=== PATIENT | female | born 1930 | race Caucasian/White ===

== ENCOUNTER 2017-04-22 12:55 | Observation (INO) | payer MEDICARE, OTHER ==
[2017-04-22] MEDS ORDERED: ALBUTEROL SULFATE 0.083% NEB 2.5 MG/3 ML AMPUL NEB ONE ×2 (13:04)
--- NOTE | 2017-04-22 13:27 | ER Document Report ---
ED General - General Stated Complaint: DIFFICULTY BREATHING Mode of Arrival: Medic Information source: Patient Notes: 86-year-old female presents with concerns of hypoxemia aspiration after colonoscopy was performed. Chest x-ray was performed prior to arrival which notes a left lower lobe infiltrate concerning for aspiration. Patient setting 91-94% TRAVEL OUTSIDE OF THE [place] IN LAST 30 DAYS: No - Related Data Allergies/Adverse Reactions: No Known Allergies Allergy (Verified 04/22/17 13:35) Past Medical History - Social History Smoking Status: Never Smoker Cigarette use (# per day): No Chew tobacco use (# tins/day): No Smoking Education Provided: No Family History: Reviewed & Not Pertinent - Past Medical History Cardiac Medical History: Reports: Hx Hypertension Denies: Hx Coronary Artery Disease - HYPERCHOLESTEROLEMIA, Hx Heart Attack Pulmonary Medical History: Denies: Hx Asthma, Hx Bronchitis, Hx COPD, Hx Pneumonia Neurological Medical History: Denies: Hx Cerebrovascular Accident, Hx Seizures GI Medical History: Reports: Hx Hiatal Hernia. Denies: Hx Hepatitis, Hx Ulcer Infectious Medical History: Denies: Hx Hepatitis Past Surgical History: Reports: Hx Hysterectomy. Denies: Hx Mastectomy, Hx Open Heart Surgery, Hx Pacemaker - Immunizations Hx Diphtheria, Pertussis, Tetanus Vaccination: No Review of Systems - Review of Systems Notes: REVIEW OF SYSTEMS: CONSTITUTIONAL : Denies fever, chills, or sweats. Denies recent illness. EENT: Denies eye, ear, throat, or mouth pain or symptoms. Denies nasal or sinus congestion or discharge. Denies throat, tongue, or mouth swelling or difficulty swallowing. CARDIOVASCULAR: Denies chest pain. Denies palpitations or racing or irregular heart beat. Denies ankle edema. RESPIRATORY: coughing GASTROINTESTINAL: Denies abdominal pain or distention. Denies nausea, vomiting , or diarrhea. Denies blood in vomitus, stools, or per rectum. Denies black, tarry stools. Denies constipation. GENITOURINARY: Denies difficulty urinating, painful urination, burning, frequency, blood in urine, or discharge. FEMALE GENITOURINARY: Denies vaginal bleeding, heavy or abnormal periods, irregular periods. Denies vaginal discharge or odor. MUSCULOSKELETAL: Denies back or neck pain or stiffness. Denies joint pain or swelling. SKIN: Denies rash, lesions or sores. HEMATOLOGIC : Denies easy bruising or bleeding. LYMPHATIC: Denies swollen, enlarged glands. NEUROLOGICAL: Denies confusion or altered mental status. Denies passing out or loss of consciousness. Denies dizziness or lightheadedness. Denies headache. Denies weakness or paralysis or loss of use of either side. Denies problems with gait or speech. Denies sensory loss, numbness, or tingling. Denies seizures. PSYCHIATRIC: Denies anxiety or stress. Denies depression, suicidal ideation, or homicidal ideation. ALL OTHER SYSTEMS REVIEWED AND NEGATIVE. PHYSICAL EXAMINATION: GENERAL: Well-appearing, well-nourished and in no acute distress. HEAD: Atraumatic, normocephalic. EYES: Pupils equal round and reactive to light, extraocular movements intact, conjunctiva are normal. ENT: Nares patent, oropharynx clear without exudates. Moist mucous membranes. NECK: Normal range of motion, supple without lymphadenopathy LUNGS: course rhonchi at the right base , tachypneic HEART: tachycardic ABDOMEN: Soft, nontender, nondistended abdomen. No guarding, no rebound. No masses appreciated. Female : deferred Musculoskeletal: Normal range of motion, no pitting or edema. No cyanosis. NEUROLOGICAL: Cranial nerves grossly intact. Normal speech, normal gait. Normal sensory, motor exams PSYCH: Normal mood, normal affect. SKIN: Warm, Dry, normal turgor, no rashes or lesions noted. Dictation was performed using [employer] voice recognition software Physical Exam - Vital signs Vitals: Temp Resp 97.9 F 24 H 04/22/17 12:55 04/22/17 12:55 Course - Re-evaluation Re-evalutation: 04/22/17 16:57 Patient was immediately evaluated on arrival, she was very coarse, chest x-ray at the [facility] was concerning for an infiltrate, was given multiple breathing treatments and states he feels much better. Patient continues to cough but wishes to leave. I have requested that I admit her but she states that she feels much better and that she rather be at home. Given her age given the amount that she is coughing I am not very confident that she will do well, I will start her on prophylactic antibiotics After performing a Medical Screening Examination, I estimate there is LOW risk for ACUTE CORONARY SYNDROME, RESPIRATORY FAILURE, SEPSIS OR MENINGITIS, thus I consider the discharge disposition reasonable. I have reevaluated this patient multiple times and no significant life threatening changes are noted. The patient and I have discussed the diagnosis and risks, and we agree with discharging home with close follow-up. We also discussed returning to the Emergency Department immediately if new or worsening symptoms occur. We have discussed the symptoms which are most concerning (e.g., changing or worsening pain, trouble swallowing or breathing, neck stiffness, fever) that necessitate immediate return. - Vital Signs Vital signs: Temp Pulse Resp BP Pulse Ox 97.9 F 28 H 143/46 H 93 04/22/17 12:55 04/22/17 16:01 04/22/17 16:01 04/22/17 16:01 - Laboratory Result Diagrams: 04/22/17 15:20 04/22/17 15:20 Laboratory results interpreted by me: 04/22/17 04/22/17 15:20 15:20 WBC 14.8 H Seg Neuts % (Manual) 92 H Lymphocytes % (Manual) 2 L Abs Neuts (Manual) 14.1 H Abs Lymphs (Manual) 0.3 L Sodium 130.3 L Potassium 3.4 L Chloride 92 L Glucose 164 H - Diagnostic Test Radiology reviewed: Image reviewed, Reports reviewed - no acute abnormality Discharge - Discharge Clinical Impression: Productive cough Aspiration pneumonia Qualifiers: Aspiration pneumonia type: unspecified Laterality: left Lung location: lower lobe of lung Qualified Code(s): J69.0 - Pneumonitis due to inhalation of food and vomit Condition: Fair Disposition: HOME, SELF-CARE Additional Instructions: Please return immediately if there are any other concerns, at this time even though you look better I am very concerned about you and I wish for you to stay in the hospital Prescriptions: Levofloxacin [Levaquin 750 mg Tablet] 750 mg PO DAILY #5 tablet Referrals: ARMANDO BUCIO MD [Primary Care Provider] - Follow up tomorrow
[2017-04-22] MEDS ORDERED: NAPROXEN 250 MG TABLET PO ONE (13:49)
--- NOTE | 2017-04-22 14:51 | RADIOLOGY REPORT (SQ) ---
EXAM DESCRIPTION: CHEST PA/LAT COMPLETED DATE/TIME: 04/22/2017 2:35 pm REASON FOR STUDY: left lower lobe aspiration COMPARISON: None. EXAM PARAMETERS: NUMBER OF VIEWS: two views TECHNIQUE: Digital Frontal and Lateral radiographic views of the chest acquired. RADIATION DOSE: NA LIMITATIONS: none FINDINGS: LUNGS AND PLEURA: No opacities, masses or pneumothorax. No pleural effusion. MEDIASTINUM AND HILAR STRUCTURES: No masses or contour abnormalities. HEART AND VASCULAR STRUCTURES: Heart normal size. No evidence for failure. BONES: No acute findings. HARDWARE: None in the chest. OTHER: No other significant finding. IMPRESSION: NO SIGNIFICANT RADIOGRAPHIC FINDING IN THE CHEST. TECHNICAL DOCUMENTATION: JOB ID: [id number] [employer]- All Rights Reserved
[2017-04-22 15:40] LABS: HEMATOCRIT 41.6 % (36.0-47.0); HEMOGLOBIN 13.8 g/dL (12.0-15.5); HGB HCT DIFFERENCE -0.2; MEAN CORPUSCULAR HEMOGLOBIN 31.4 pg (27.0-33.4); MEAN CORPUSCULAR HGB CONC 33.2 g/dL (32.0-36.0); MEAN CORPUSCULAR VOLUME 95 fl (80-97); RED CELL DISTRIBUTION WIDTH 13.6 % (11.5-14.0); WHITE BLOOD COUNT 14.8 10^3/uL (4.0-10.5)
[2017-04-22 16:00] LABS: BAND NEUTROPHILS % (MANUAL) 3 % (3-5); BASOPHILS % (MANUAL) 0 % (0-2); EOSINOPHILS % (MANUAL) 0 % (0-6); LYMPHOCYTES % (MANUAL) 2 % (13-45); TOTAL CELLS COUNTED 100
[2017-04-22 16:03] LABS: OVALOCYTES SLIGHT; POIKILOCYTOSIS SLIGHT
[2017-04-22 16:06] LABS: ALANINE AMINOTRANSFERASE 27 U/L (9-52); ALBUMIN 4.4 g/dL (3.5-5.0); ALKALINE PHOSPHATASE 98 U/L (38-126); ANION GAP 14 (5-19); ASPARTATE AMINO TRANSFERASE 30 U/L (14-36); BILIRUBIN,DIRECT 0.3 mg/dL (0.0-0.4); BILIRUBIN,TOTAL 0.6 mg/dL (0.2-1.3); BLOOD UREA NITROGEN 10 mg/dL (7-20); CARBON DIOXIDE 24 mmol/L (22-30); CHLORIDE 92 mmol/L (98-107); CREATININE RESULT 0.87 mg/dL (0.52-1.25); GLUCOSE 164 mg/dL (75-110); POTASSIUM 3.4 mmol/L (3.6-5.0); SODIUM 130.3 mmol/L (137-145); TOTAL PROTEIN 7.3 g/dL (6.3-8.2)
[2017-04-22 16:24] LABS: VENOUS BLOOD BASE EXCESS 1.1 mmol/L; VENOUS BLOOD HCO3 28.1 mmol/L (20-32); VENOUS BLOOD PCO2 54.1 mmHg (35-63); VENOUS BLOOD PH 7.33 (7.30-7.42)
[2017-04-22] MEDS ORDERED: LEVOFLOXACIN 500 MG/D5W RTU 100 ML IV ONE (17:22)
[2017-04-22] MEDS ORDERED: ACETAMINOPHEN 325 MG TABLET PO PRN (18:17)
[2017-04-22] MEDS ORDERED: NORMAL SALINE 1000 ML 1,000 ML IV PRN (18:17)
[2017-04-22] MEDS ORDERED: ONDANSETRON HCL INJ/PF 4 MG/2 ML SDV IV PRN (18:17)
--- NOTE | 2017-04-22 18:39 | PDOC H&P ---
History of Present Illness Admission Date/PCP: 04/22/17 17:47 ARMANDO BUCIO MD Patient complains of: Coughing and wheezing History of Present Illness: REENA HERNANDEZ is a 86 year old female, with history of hypertension, hiatal hernia, hyperlipidemia having routine colonoscopy earlier today reportedly vomited during the procedure and aspirated. The patient does not remember what happened as she was under conscious sedation. A chest x-ray was performed at the facility showing a left lower lobe infiltrate with associated hypoxia and therefore the patient was sent to the hospital. In the emergency room the patient complains of wheezing and coughing yellowish phlegm upon waking up. Patient does not remember what happened. She denies any having any fever or chills or sore throat. No history of congestive heart failure or asthma. Patient does not complain of any symptoms prior to the procedure. Past Medical History Past Medical History: Medication reconciliation pending verification from the patient's pharmacist. Cardiac Medical History: Reports: Hypertension Denies: Coronary Artery Disease - HYPERCHOLESTEROLEMIA, Myocardial Infarction Pulmonary Medical History: Denies: Asthma, Bronchitis, Chronic Obstructive Pulmonary Disease (COPD), Pneumonia Neurological Medical History: Denies: Seizures GI Medical History: Reports: Gastroesophageal Reflux Disease, Hiatal Hernia Denies: Hepatitis Hematology: Denies: Anemia, Sickle Cell Disease Past Surgical History Past Surgical History: Reports: Hysterectomy, Other - Colonoscopy Denies: Amputation, Mastectomy, Pacemaker Social History Information Source: Patient Smoking Status: Former Smoker Frequency of Alcohol Use: None Hx Recreational Drug Use: No Drugs: None - Advance Directive Resuscitation Status: Full Code Family History Family History: None, Reviewed & Not Pertinent Parental Family History Reviewed: Yes Children Family History Reviewed: Yes Sibling(s) Family History Reviewed.: Yes Medication/Allergy Allergies/Adverse Reactions: No Known Allergies Allergy (Verified 04/22/17 13:35) Review of Systems Constitutional: ABSENT: chills, fever(s), headache(s), weight gain, weight loss Eyes: ABSENT: visual disturbances Ears: ABSENT: hearing changes Nose, Mouth, and Throat: ABSENT: mouth pain, sore throat Cardiovascular: ABSENT: chest pain, dyspnea on exertion, edema, orthropnea, palpitations Respiratory: PRESENT: cough - With wheezing, dyspnea, sputum - Yellowish. ABSENT: hemoptysis Gastrointestinal: PRESENT: nausea, vomiting. ABSENT: abdominal pain, constipation, diarrhea, hematemesis, hematochezia Genitourinary: ABSENT: dysuria, hematuria Musculoskeletal: ABSENT: joint swelling Integumentary: ABSENT: rash, wounds Neurological: ABSENT: abnormal gait, abnormal speech, confusion, dizziness, focal weakness, syncope Psychiatric: ABSENT: anxiety, depression, homidical ideation, suicidal ideation Endocrine: ABSENT: cold intolerance, heat intolerance, polydipsia, polyuria Hematologic/Lymphatic: ABSENT: easy bleeding, easy bruising Physical Exam Vital Signs: Temp Pulse Resp BP Pulse Ox 99.7 F 42 H 140/51 H 93 04/22/17 18:15 04/22/17 18:01 04/22/17 18:01 04/22/17 18:01 Intake & Output 04/21/17 04/22/17 04/23/17 06:59 06:59 06:59 Intake Total 100 Balance 100 General appearance: PRESENT: no acute distress, cooperative Head exam: PRESENT: atraumatic, normocephalic Eye exam: PRESENT: conjunctiva pink, EOMI, PERRLA. ABSENT: scleral icterus Ear exam: PRESENT: normal external ear exam Mouth exam: PRESENT: moist, neck supple, tongue midline Throat exam: ABSENT: post pharyngeal erythema, tonsillar erythema Neck exam: ABSENT: carotid bruit, JVD, lymphadenopathy, thyromegaly Respiratory exam: PRESENT: rhonchi - scattered bilateral, wheezes - Expiratory bilateral. ABSENT: rales Cardiovascular exam: PRESENT: RRR, +S1, +S2. ABSENT: diastolic murmur, rubs, systolic murmur Pulses: PRESENT: normal dorsalis pedis pul Vascular exam: PRESENT: normal capillary refill GI/Abdominal exam: PRESENT: normal bowel sounds, soft. ABSENT: distended, guarding, mass, organolmegaly, rebound, tenderness Rectal exam: PRESENT: deferred Extremities exam: PRESENT: full ROM. ABSENT: calf tenderness, clubbing, pedal edema Neurological exam: PRESENT: alert, awake, oriented to person, oriented to place , oriented to time, oriented to situation, CN II-XII grossly intact. ABSENT: motor sensory deficit Psychiatric exam: PRESENT: appropriate affect, normal mood. ABSENT: homicidal ideation, suicidal ideation Skin exam: PRESENT: dry, intact, warm. ABSENT: cyanosis, rash Results Impressions: Chest X-Ray 04/22/17 13:03 IMPRESSION: NO SIGNIFICANT RADIOGRAPHIC FINDING IN THE CHEST. Assessment & Plan - Diagnosis (1) Aspiration pneumonitis Is this a current diagnosis for this admission?: Yes (2) Hyperactive airway disease Qualifiers: Asthma severity: unspecified severity Asthma complication type: uncomplicated Qualified Code(s): J45.909 - Unspecified asthma, uncomplicated Is this a current diagnosis for this admission?: Yes (3) Hyperlipidemia Qualifiers: Hyperlipidemia type: unspecified Qualified Code(s): E78.5 - Hyperlipidemia, unspecified Is this a current diagnosis for this admission?: Yes (4) Essential hypertension Is this a current diagnosis for this admission?: Yes (5) Gastroesophageal reflux disease Qualifiers: Esophagitis presence: without esophagitis Qualified Code(s): K21.9 - Gastro-esophageal reflux disease without esophagitis Is this a current diagnosis for this admission?: Yes - Time Time Spent: 30 to 50 Minutes - Plan Summary Plan Summary: Patient will be admitted to observation. I will give supplemental oxygen, begin anti-inflammatory which steroids and avoid nonsteroidals. We will give [id number] Xopenex for bronchodilation. Antibiotic to cover for aspiration will also be started. DVT prophylaxis with Lovenox will be placed. Further testing depends on the initial evaluations outlined above.
[2017-04-22] MEDS ORDERED: PREDNISONE 20 MG TABLET PO ONE (19:00)
[2017-04-22] MEDS ORDERED: POTASSIUM CHLORIDE 20 MEQ/15 ML UDCUP PO ONE (19:30)
[2017-04-22] MEDS ORDERED: METRONIDAZOLE 500 MG/NS RTU 100 ML IV ONE (19:30)
[2017-04-22] MEDS: LEVALBUTEROL HCL NEB 1.25 MG/3 ML AMPUL NEB SCH ×2 (20:15→23:48)
[2017-04-22] MEDS: BENZONATATE 100 MG CAPSULE PO SCH (21:09)
[2017-04-23] MEDS: METRONIDAZOLE 500 MG/NS RTU 100 ML IV SCH ×4 (00:18→17:40)
[2017-04-23] MEDS: LEVALBUTEROL HCL NEB 1.25 MG/3 ML AMPUL NEB SCH ×3 (04:25→11:20)
[2017-04-23] MEDS: LANSOPRAZOLE 30 MG TAB.RAP.DR PO SCH ×2 (05:11→17:39)
[2017-04-23] MEDS: BENZONATATE 100 MG CAPSULE PO SCH ×3 (05:11→22:18)
[2017-04-23 06:02] LABS: ANION GAP 10 (5-19); BLOOD UREA NITROGEN 16 mg/dL (7-20); CALCIUM 9.1 mg/dL (8.4-10.2); CARBON DIOXIDE 23 mmol/L (22-30); CHLORIDE 96 mmol/L (98-107); CREATININE RESULT 0.96 mg/dL (0.52-1.25); GLUCOSE 157 mg/dL (75-110); MAGNESIUM 1.4 mg/dL (1.6-2.3); PHOSPHORUS 2.9 mg/dL (2.5-4.5); SODIUM 128.7 mmol/L (137-145)
[2017-04-23 06:32] LABS: POTASSIUM 5.1 mmol/L (3.6-5.0)
[2017-04-23] MEDS: ENOXAPARIN SODIUM INJ 40 MG/0.4 ML DISP.SYRIN SUBCUT SCH (09:23)
[2017-04-23] MEDS: DOCUSATE SODIUM 100 MG CAPSULE PO SCH ×2 (09:25→17:42)
[2017-04-23] MEDS: PRIMIDONE 50 MG TABLET PO SCH ×2 (10:00→22:20)
[2017-04-23] MEDS ORDERED: PREDNISONE 20 MG TABLET PO SCH (10:00)
--- NOTE | 2017-04-23 11:21 | PDOC DISCHARGE SUMMARY ---
General - Admit/Disc Date/PCP Admission Date/Primary Care Provider: 04/22/17 18:17 ARMANDO BUCIO MD Discharge Date: 04/24/17 - Discharge Diagnosis (1) Aspiration pneumonitis Is this a current diagnosis for this admission?: Yes (2) Hyperactive airway disease Is this a current diagnosis for this admission?: Yes (3) Hyperlipidemia Is this a current diagnosis for this admission?: Yes (4) Essential hypertension Is this a current diagnosis for this admission?: Yes (5) Gastroesophageal reflux disease Is this a current diagnosis for this admission?: Yes - Additional Information Resuscitation Status: Full Code Discharge Diet: Cardiac - Low-fat low-salt Discharge Activity: Activity As Tolerated, Balance Activity w/Rest Home Medications: Chlorthalidone [Chlorthalidone 25 mg Tablet] 25 mg PO DAILY 04/22/17 Levothyroxine Sodium [Synthroid 0.05 mg Tablet] 50 mcg PO DAILY 04/22/17 Omeprazole 20 mg PO DAILY 04/22/17 Primidone [Mysoline 50 mg Tablet] 100 mg PO Q12 04/22/17 Sertraline HCl [Zoloft 50 mg Tablet] 50 mg PO DAILY 04/22/17 Vitamin B Complex 1 tab PO DAILY 04/22/17 Albuterol Sulfate [Ventolin Hfa 8 gm Mdi (1 Mdi/ER Disp)] 2 puff IH Q4H PRN #1 inhaler 04/23/17 Benzonatate [Tessalon Perles 100 mg Capsule] 100 mg PO Q8 PRN #30 capsule Levofloxacin [Levaquin 500 mg Tablet] 500 mg PO DAILY #6 tablet 04/23/17 Metronidazole [Flagyl 500 mg Tablet] 500 mg PO TID #18 tablet 04/23/17 Additional Information: Return to the emergency room if symptoms recur. Basic metabolic panel as outpatient with primary care physician in 1 week. History of Present Illness Patient complains of: Aspiration History of Present Illness: REENA HERNANDEZ is a 86 year old female, with history of hypertension, hiatal hernia, hyperlipidemia having routine colonoscopy earlier today reportedly vomited during the procedure and aspirated. The patient does not remember what happened as she was under conscious sedation. A chest x-ray was performed at the facility showing a left lower lobe infiltrate with associated hypoxia and therefore the patient was sent to the hospital. In the emergency room the patient complains of wheezing and coughing yellowish phlegm upon waking up. Patient does not remember what happened. She denies any having any fever or chills or sore throat. No history of congestive heart failure or asthma. Patient does not complain of any symptoms prior to the procedure. Hospital Course Hospital Course: The patient was admitted to observation. The patient was started on bronchodilators as well as steroids. Supplemental oxygen was also given. Empiric antibiotic was given for possible aspiration pneumonitis. The patient did well the following morning. Patient was able to be weaned off oxygen without desaturation. Her coughing was less as well as the congestion. Course was noted for hypokalemia and hyponatremia of which the patient was given normal saline and supplement. On follow-up potassium was mildly elevated and his sodium trended down. Patient was on VINCENZO inhibitor prior to admission and therefore this was held. He was given a dose of Kayexalate. Magnesium was low. Replacement was given. She was advised to follow-up potassium level on an outpatient basis. She will continue her diuretics for blood pressure control and follow-up with primary care physician on an outpatient basis for monitoring her hypertension and follow-up potassium level and magnesium level. Physical Exam Vital Signs: Temp Pulse Resp BP Pulse Ox 98.0 F 72 14 139/54 H 100 04/23/17 07:41 04/23/17 07:47 04/23/17 07:47 04/23/17 07:41 04/23/17 07:47 Intake & Output 04/22/17 04/23/17 04/24/17 06:59 06:59 06:59 Intake Total 435 Balance 435 Weight 74.6 kg General appearance: PRESENT: no acute distress, cooperative Head exam: PRESENT: normocephalic Eye exam: PRESENT: EOMI Mouth exam: PRESENT: moist, neck supple Neck exam: ABSENT: JVD Respiratory exam: PRESENT: rhonchi - Minimal, improved Cardiovascular exam: PRESENT: RRR. ABSENT: gallop GI/Abdominal exam: PRESENT: soft. ABSENT: distended, tenderness Extremities exam: ABSENT: pedal edema Neurological exam: PRESENT: alert, awake, oriented to situation Skin exam: PRESENT: dry, warm. ABSENT: cyanosis Results Laboratory Results: 04/23/17 05:04 04/23/17 05:04 Sodium 128.7 L Potassium 5.1 H D Chloride 96 L Carbon Dioxide 23 Anion Gap 10 BUN 16 Creatinine 0.96 Est GFR ( Amer) > 60 Est GFR (Non-Af Amer) 55 L Glucose 157 H Calcium 9.1 Phosphorus 2.9 Magnesium 1.4 L Impressions: Chest X-Ray 04/22/17 13:03 IMPRESSION: NO SIGNIFICANT RADIOGRAPHIC FINDING IN THE CHEST. Qualifiers PATEINT BEING DISCHARGED WITH ANY OF THE FOLLOWING DIAGNOSIS?: No Plan Discharge Plan: Follow-up with primary care physician in 1-2 weeks. Time Spent: Less than 30 Minutes
[2017-04-23] MEDS ORDERED: SODIUM POLYSTYRENE SULFONATE 15 GM/60 ML PO ONE (12:00)
[2017-04-23] MEDS ORDERED: LEVALBUTEROL HCL NEB 1.25 MG/3 ML AMPUL NEB PRN (14:01)
--- NOTE | 2017-04-23 14:06 | PDOC PROGRESS REPORT ---
Subjective Progress Note for:: 04/23/17 Subjective:: Still w/ intermittent wheezing but better overall. No chills/fever/pleurisy. No PND orthopnea. Physical Exam Vital Signs: Temp Pulse Resp BP Pulse Ox 97.9 F 75 14 117/59 L 97 04/23/17 11:03 04/23/17 11:20 04/23/17 11:20 04/23/17 11:03 04/23/17 11:03 Intake & Output 04/22/17 04/23/17 04/24/17 06:59 06:59 06:59 Intake Total 435 Balance 435 Weight 74.6 kg General appearance: PRESENT: no acute distress, cooperative Head exam: PRESENT: normocephalic Eye exam: PRESENT: EOMI Mouth exam: PRESENT: moist, neck supple Neck exam: ABSENT: JVD Respiratory exam: PRESENT: rhonchi - few B/L, unlabored Cardiovascular exam: PRESENT: RRR. ABSENT: gallop GI/Abdominal exam: PRESENT: soft. ABSENT: distended, tenderness Extremities exam: ABSENT: pedal edema Neurological exam: PRESENT: alert, awake, oriented to situation Skin exam: PRESENT: dry, warm. ABSENT: cyanosis Results Laboratory Results: 04/23/17 05:04 04/23/17 05:04 Sodium 128.7 L Potassium 5.1 H D Chloride 96 L Carbon Dioxide 23 Anion Gap 10 BUN 16 Creatinine 0.96 Est GFR ( Amer) > 60 Est GFR (Non-Af Amer) 55 L Glucose 157 H Calcium 9.1 Phosphorus 2.9 Magnesium 1.4 L Impressions: Chest X-Ray 04/22/17 13:03 IMPRESSION: NO SIGNIFICANT RADIOGRAPHIC FINDING IN THE CHEST. Assessment & Plan - Diagnosis (1) Aspiration pneumonitis Is this a current diagnosis for this admission?: Yes (2) Hyperactive airway disease Qualifiers: Asthma severity: unspecified severity Asthma complication type: uncomplicated Qualified Code(s): J45.909 - Unspecified asthma, uncomplicated Is this a current diagnosis for this admission?: Yes (3) Hyperlipidemia Qualifiers: Hyperlipidemia type: unspecified Qualified Code(s): E78.5 - Hyperlipidemia, unspecified Is this a current diagnosis for this admission?: Yes (4) Essential hypertension Is this a current diagnosis for this admission?: Yes (5) Gastroesophageal reflux disease Qualifiers: Esophagitis presence: without esophagitis Qualified Code(s): K21.9 - Gastro-esophageal reflux disease without esophagitis Is this a current diagnosis for this admission?: Yes - Time Time Spent with patient: 25-34 minutes - Plan Summary Plan Summary: Cont. antibx. Change to PRN nebulizer. Kayexalate for hyperkalemia. Can D/C steroids. Hold VINCENZO I. Recheck potassium in am. D/C IVF.
[2017-04-23] MEDS ORDERED: LEVOFLOXACIN 750 MG/D5W RTU 150 ML IV SCH (18:00)
[2017-04-23] MEDS ORDERED: METRONIDAZOLE 500 MG TABLET PO ONE (19:00)
[2017-04-23] MEDS: LEVALBUTEROL HCL NEB 1.25 MG/3 ML AMPUL NEB PRN (22:55)
[2017-04-23] MEDS: METRONIDAZOLE 500 MG TABLET PO SCH (23:23)
[2017-04-24] MEDS: LANSOPRAZOLE 30 MG TAB.RAP.DR PO SCH (05:08)
[2017-04-24] MEDS: BENZONATATE 100 MG CAPSULE PO SCH (05:08)
[2017-04-24] MEDS: METRONIDAZOLE 500 MG TABLET PO SCH (05:08)
[2017-04-24] MEDS: LEVALBUTEROL HCL NEB 1.25 MG/3 ML AMPUL NEB PRN (05:11)
[2017-04-24 09:44] LABS: MAGNESIUM 1.5 mg/dL (1.6-2.3)
[2017-04-24] MEDS ORDERED: MAGNESIUM OXIDE 400 MG TABLET PO ONE (10:27)
--- NOTE | 2017-04-24 10:36 | PDOC PROGRESS REPORT ---
Subjective Progress Note for:: 04/24/17 Subjective:: Feels much better this morning and wants to go home. No fever nor respiratory distress reported. Denies diarrhea/SOB Physical Exam Vital Signs: Temp Pulse Resp BP Pulse Ox 98.3 F 70 14 128/37 H 95 04/24/17 08:04 04/24/17 08:04 04/24/17 08:04 04/24/17 08:04 04/24/17 08:04 Intake & Output 04/23/17 04/24/17 04/25/17 06:59 06:59 06:59 Intake Total 435 960 Output Total 1400 Balance 435 -440 Weight 74.6 kg 73.765 kg General appearance: PRESENT: no acute distress, obese Head exam: PRESENT: normocephalic Eye exam: PRESENT: EOMI Mouth exam: PRESENT: moist, neck supple Neck exam: ABSENT: JVD Respiratory exam: PRESENT: rhonchi - minimal Cardiovascular exam: PRESENT: RRR. ABSENT: gallop GI/Abdominal exam: PRESENT: normal bowel sounds, soft. ABSENT: distended Extremities exam: ABSENT: pedal edema Neurological exam: PRESENT: alert, awake, oriented to person, oriented to place , oriented to time, oriented to situation Skin exam: PRESENT: dry, warm. ABSENT: cyanosis Results Laboratory Results: 04/24/17 09:16 04/24/17 09:16 Potassium 4.0 Magnesium 1.5 L Impressions: Chest X-Ray 04/22/17 13:03 IMPRESSION: NO SIGNIFICANT RADIOGRAPHIC FINDING IN THE CHEST. Assessment & Plan - Diagnosis (1) Aspiration pneumonitis Is this a current diagnosis for this admission?: Yes (2) Hyperactive airway disease Qualifiers: Asthma severity: unspecified severity Asthma complication type: uncomplicated Qualified Code(s): J45.909 - Unspecified asthma, uncomplicated Is this a current diagnosis for this admission?: Yes (3) Hyperlipidemia Qualifiers: Hyperlipidemia type: unspecified Qualified Code(s): E78.5 - Hyperlipidemia, unspecified Is this a current diagnosis for this admission?: Yes (4) Essential hypertension Is this a current diagnosis for this admission?: Yes (5) Gastroesophageal reflux disease Qualifiers: Esophagitis presence: without esophagitis Qualified Code(s): K21.9 - Gastro-esophageal reflux disease without esophagitis Is this a current diagnosis for this admission?: Yes - Time Time Spent with patient: Less than 15 minutes - Plan Summary Plan Summary: Replace magnesium and continue D/C plans. Please refer to D/C summary on .
[2017-04-24] MEDS: PRIMIDONE 50 MG TABLET PO SCH (10:40)
[2017-04-24] MEDS: DOCUSATE SODIUM 100 MG CAPSULE PO SCH (10:44)
[2017-04-24] MEDS: ENOXAPARIN SODIUM INJ 40 MG/0.4 ML DISP.SYRIN SUBCUT SCH (10:44)
[2017-04-24 10:51] VITALS: BP 147/42
[2017-04-24] MEDS ORDERED: LEVOFLOXACIN 750 MG/D5W RTU 750 MG/150 ML RTUPB IV SCH (18:00)
== END 2017-04-24 11:15 | disposition home or self-care (01) ==
LOC: ER 12:55 → UNDOADMOB 17:47 → EH 17:47 → 5 18:46 → EH 18:46
PROVIDERS: ADMIT Family Medicine; ATTEND Family Medicine
PROC: 3E0F7GC Introduction of Other Therapeutic Substance into Respiratory Tract, Via Natural or Artificial Opening (ICD-10-PCS; principal; 2017-04-22)
DX: J69.0 Pneumonitis due to inhalation of food and vomit (principal); J45.909 Unspecified asthma, uncomplicated; E78.5 Hyperlipidemia, unspecified; I10 Essential (primary) hypertension; K21.9 Gastro-esophageal reflux disease without esophagitis; R09.02 Hypoxemia; E87.6 Hypokalemia; E87.1 Hypo-osmolality and hyponatremia; R00.0 Tachycardia, unspecified; Z79.899 Other long term (current) drug therapy; Z90.710 Acquired absence of both cervix and uterus; Z87.891 Personal history of nicotine dependence
CPT/HCPCS: 94640 ×6; 99285; 96365; 36415 ×3; 87040; 83735 ×2; 84100; 84132; 85025; 80048; 80053; 82803; 71020; A9270 ×17; J1956; J1650; J3490 ×5; G0378; J7512

== ENCOUNTER → 2017-05-06 | Outpatient (CLI) | payer MEDICARE, OTHER ==
[2017-05-06 12:07] LABS: ANION GAP 9 (5-19); BLOOD UREA NITROGEN 31 mg/dL (7-20); CALCIUM 9.1 mg/dL (8.4-10.2); CARBON DIOXIDE 27 mmol/L (22-30); CHLORIDE 97 mmol/L (98-107); GLUCOSE 90 mg/dL (75-110); POTASSIUM 5.4 mmol/L (3.6-5.0); SODIUM 133.3 mmol/L (137-145)
== END ==
LOC: OD 10:41
PROVIDERS: ATTEND Internal Medicine Nephrology
DX: E87.1 Hypo-osmolality and hyponatremia (principal)
CPT/HCPCS: 36415; 80048; 82533; 83930; 83935; 84300; 84550

== ENCOUNTER → 2017-06-06 | Outpatient (CLI) | payer MEDICARE, OTHER ==
[2017-06-06 10:26] LABS: ANION GAP 9 (5-19); BLOOD UREA NITROGEN 17 mg/dL (7-20); CALCIUM 9.4 mg/dL (8.4-10.2); CARBON DIOXIDE 27 mmol/L (22-30); CHLORIDE 94 mmol/L (98-107); CREATININE RESULT 0.91 mg/dL (0.52-1.25); GLUCOSE 93 mg/dL (75-110); POTASSIUM 5.2 mmol/L (3.6-5.0); SODIUM 129.8 mmol/L (137-145)
[2017-06-10 07:14] LABS: ALDOSTERONE 10.3 ng/dL (0.0-30.0)
== END ==
LOC: OD 08:52
PROVIDERS: ATTEND Internal Medicine Nephrology
DX: N28.9 Disorder of kidney and ureter, unspecified (principal); E87.1 Hypo-osmolality and hyponatremia; E87.5 Hyperkalemia
CPT/HCPCS: 36415; 80048; 82088; 84244

== ENCOUNTER 2019-02-09 12:05 | Observation (INO) | payer MEDICARE, OTHER ==
[2019-02-09] MEDS ORDERED: HYDROCHLOROTHIAZIDE 25 MG TABLET PO ONE (12:31)
[2019-02-09] MEDS ORDERED: LISINOPRIL 10 MG TABLET PO ONE (12:31)
--- NOTE | 2019-02-09 12:34 | ER Document Report ---
ED Medical Screen (RME) - General Chief Complaint: High Blood Pressure Stated Complaint: BLOOD PRESSURE ISSUES Time Seen by Provider: 02/09/19 12:22 Primary Care Provider: LIO LENTZ MD [Primary Care Provider] - Follow up as needed Mode of Arrival: Ambulatory Information source: Patient Notes: Patient is an 88-year-old female presented to the emergency department with chief complaint of elevated blood pressure. Patient states she had a routine appointment today at her neurology office where they found her to have a blood pressure over 200 systolic. Patient reports she is having mild headaches. Patient reports that she takes lisinopril and hydrochlorothiazide. She has a list that was written by her physician. She also has her medication bottles wi th her and there is no bottle of hydrochlorothiazide. Patient states that she is unsure what she is taking but all she knows is that she takes what is in the bottles. Upon review of her pharmacy records she has not had the hydrochlorothiazide filled since July. Patient and daughter both agree that this must be a mistake and she is probably supposed to be taking this medication. Dose of patient's lisinopril and hydrochlorothiazide ordered in triage. Exam: Lung sounds clear and equal bilaterally. Patient answering all questions appropriately and has no focal neurological deficits. I have greeted and performed a rapid initial assessment of this patient. A comprehensive ED assessment and evaluation of the patient, analysis of test results and completion of the medical decision making process will be conducted by additional ED providers. Dictation of this chart was performed using voice recognition software; therefore, there may be some unintended grammatical errors. TRAVEL OUTSIDE OF THE [place] IN LAST 30 DAYS: No - Related Data Allergies/Adverse Reactions: No Known Allergies Allergy (Verified 04/22/17 13:35) Past Medical History - Social History Frequency of alcohol use: None Drug Abuse: None - Past Medical History Cardiac Medical History: Reports: Hx Hypertension Denies: Hx Coronary Artery Disease - HYPERCHOLESTEROLEMIA, Hx Heart Attack Pulmonary Medical History: Denies: Hx Asthma, Hx Bronchitis, Hx COPD, Hx Pneumonia Neurological Medical History: Denies: Hx Cerebrovascular Accident, Hx Seizures Renal/ Medical History: Denies: Hx Peritoneal Dialysis GI Medical History: Reports: Hx Gastroesophageal Reflux Disease, Hx Hiatal Hernia. Denies: Hx Hepatitis, Hx Ulcer Infectious Medical History: Denies: Hx Hepatitis Past Surgical History: Reports: Hx Hysterectomy, Other - Colonoscopy. Denies: Hx Mastectomy, Hx Open Heart Surgery, Hx Pacemaker - Immunizations Hx Diphtheria, Pertussis, Tetanus Vaccination: No Physical Exam - Vital signs Vitals: Temp Pulse Resp BP Pulse Ox 98.0 F 87 18 234/98 H 97 02/09/19 12:13 02/09/19 12:13 02/09/19 12:13 02/09/19 12:13 02/09/19 12:13 Course - Vital Signs Vital signs: Temp Pulse Resp BP Pulse Ox 98.0 F 87 18 234/98 H 97 02/09/19 12:13 02/09/19 12:13 02/09/19 12:13 02/09/19 12:13 02/09/19 12:13 Doctor's Discharge - Discharge Referrals: LIO LENTZ MD [Primary Care Provider] - Follow up as needed
[2019-02-09] MEDS ORDERED: METOPROLOL TARTRATE PF/INJ 5 MG/5 ML SDV IV ONE ×2 (13:31→15:51)
[2019-02-09 14:03] LABS: ABSOLUTE EOSINOPHILS # (AUTO) 0.1 10^3/uL (0.0-0.6); ABSOLUTE LYMPHOCYTES (AUTO) 0.9 10^3/uL (0.5-4.7); ABSOLUTE MONOCYTES (AUTO) 0.4 10^3/uL (0.1-1.4); ABSOLUTE NEUT (AUTO) 2.5 10^3/uL (1.7-8.2); BASOPHILS % (AUTO) 0.2 % (0-2); EOSINOPHILS % (AUTO) 1.5 % (0-6); HEMATOCRIT 38.9 % (36.0-47.0); HEMOGLOBIN 13.1 g/dL (12.0-15.5); LYMPHOCYTES % (AUTO) 22.9 % (13-45); MEAN CORPUSCULAR HEMOGLOBIN 32.1 pg (27.0-33.4); MEAN CORPUSCULAR HGB CONC 33.7 g/dL (32.0-36.0); MEAN CORPUSCULAR VOLUME 95 fl (80-97); MONOCYTES % (AUTO) 9.9 % (3-13); PLATELET COUNT 151 10^3/uL (150-450); RED BLOOD COUNT 4.09 10^6/uL (3.72-5.28); RED CELL DISTRIBUTION WIDTH 13.6 % (11.5-14.0); SEGMENTED NEUTROPHILS % (AUTO) 65.5 % (42-78); TOTAL CELLS COUNTED % (AUTO) 100 %; WHITE BLOOD COUNT 3.8 10^3/uL (4.0-10.5)
[2019-02-09 14:26] LABS: ALANINE AMINOTRANSFERASE 23 U/L (9-52); ALBUMIN 3.9 g/dL (3.5-5.0); ALKALINE PHOSPHATASE 70 U/L (38-126); ANION GAP 9 (5-19); ASPARTATE AMINO TRANSFERASE 23 U/L (14-36); BILIRUBIN,DIRECT 0.2 mg/dL (0.0-0.4); BILIRUBIN,TOTAL 0.9 mg/dL (0.2-1.3); BLOOD UREA NITROGEN 11 mg/dL (7-20); CALCIUM 9.8 mg/dL (8.4-10.2); CARBON DIOXIDE 29 mmol/L (22-30); CHLORIDE 103 mmol/L (98-107); CREATINE KINASE 46 U/L (30-135); GLUCOSE 91 mg/dL (75-110); POTASSIUM 4.3 mmol/L (3.6-5.0); SODIUM 140.8 mmol/L (137-145); TOTAL PROTEIN 6.4 g/dL (6.3-8.2)
[2019-02-09 14:36] LABS: CREATINE KINASE MB 0.72 ng/mL (<4.55)
[2019-02-09 14:38] LABS: TROPONIN I 0.045 ng/mL
--- NOTE | 2019-02-09 15:01 | RADIOLOGY REPORT (SQ) ---
EXAM DESCRIPTION: CHEST SINGLE VIEW COMPLETED DATE/TIME: 02/09/2019 2:34 pm REASON FOR STUDY: Elevated blood pressure COMPARISON: 04/22/2017 EXAM PARAMETERS: NUMBER OF VIEWS: One view. TECHNIQUE: Single frontal radiographic view of the chest acquired. RADIATION DOSE: NA LIMITATIONS: None. FINDINGS: LUNGS AND PLEURA: No opacities, masses or pneumothorax. No pleural effusion. MEDIASTINUM AND HILAR STRUCTURES: No masses. Contour normal. HEART AND VASCULAR STRUCTURES: The heart size is at the upper limits of normal. Normal vasculature. BONES: No acute findings. HARDWARE: None in the chest. OTHER: No other significant finding. IMPRESSION: 1. No acute pulmonary findings. 2. Additional findings as above. TECHNICAL DOCUMENTATION: JOB ID: [id number] [employer]- All Rights Reserved Reading location - IP/workstation name: [email or web address]
[2019-02-09] MEDS ORDERED: HYDRALAZINE HCL INJ/PF 20 MG/1 ML SDV IV ONE ×3 (15:17→16:25)
[2019-02-09] MEDS ORDERED: HYDRALAZINE HCL INJ/PF 20 MG/1 ML SDV IV PRN (17:47)
[2019-02-09] MEDS ORDERED: ONDANSETRON HCL INJ/PF 4 MG/2 ML SDV IV ONE (17:57)
[2019-02-09] MEDS ORDERED: LORAZEPAM INJ 2 MG/1 ML VIAL IV ONE (17:58)
--- NOTE | 2019-02-09 18:07 | PDOC H&P ---
History of Present Illness Admission Date/PCP: JENNIFER PRADHAN PA-C History of Present Illness: REENA HERNANDEZ is a 88 year old female with a history of hypertension and an essential tremor who was in her usual state of health this morning when she went to her neurologist office. She said she felt fine, but she was told her that her blood pressure was high and she was sent to her primary care provider's office. At her primary care provider's office, she was told her blood pressure was high and was sent to the emergency room. It does not like she got anything for her blood pressure until she came to the ER. She ambulated into the ER. She says she feels fine. No headaches or visual disturbances. No chest pain or shortness of breath. Her labs were essentially unremarkable. She did report a small bit of swelling in her legs last couple days but she says she gets that fr om time to time. She said her HCTZ usually takes care of it. She says she did take her medications this morning. After multiple medication administrations her blood pressure was still showing a systolic in the 190s. She is being admitted for blood pressure management. Past Medical History Cardiac Medical History: Reports: Hypertension Denies: Coronary Artery Disease - HYPERCHOLESTEROLEMIA, Myocardial Infarction Pulmonary Medical History: Denies: Asthma, Bronchitis, Chronic Obstructive Pulmonary Disease (COPD), Pneumonia Neurological Medical History: Denies: Seizures GI Medical History: Reports: Gastroesophageal Reflux Disease, Hiatal Hernia Denies: Hepatitis Hematology: Denies: Anemia, Sickle Cell Disease Past Surgical History Past Surgical History: Reports: Hysterectomy, Other - Colonoscopy Denies: Amputation, Mastectomy, Pacemaker Social History Smoking Status: Never Smoker Frequency of Alcohol Use: None Hx Recreational Drug Use: No Drugs: None Family History Family History: None, Reviewed & Not Pertinent Parental Family History Reviewed: Yes - Hypertension Children Family History Reviewed: Unknown Sibling(s) Family History Reviewed.: Unknown Medication/Allergy Home Medications: Chlorthalidone [Chlorthalidone 25 mg Tablet] 25 mg PO DAILY 04/22/17 Levothyroxine Sodium [Synthroid 0.05 mg Tablet] 50 mcg PO DAILY 04/22/17 Omeprazole 20 mg PO DAILY 04/22/17 Primidone [Mysoline 50 mg Tablet] 100 mg PO Q12 04/22/17 Sertraline HCl [Zoloft 50 mg Tablet] 50 mg PO DAILY 04/22/17 Vitamin B Complex 1 tab PO DAILY 04/22/17 Albuterol Sulfate [Ventolin Hfa 8 gm Mdi (1 Mdi/ER Disp)] 2 puff IH Q4H PRN #1 inhaler 04/23/17 Benzonatate [Tessalon Perles 100 mg Capsule] 100 mg PO Q8 PRN #30 capsule 04/23/17 Levofloxacin [Levaquin 500 mg Tablet] 500 mg PO DAILY #6 tablet 04/23/17 Metronidazole [Flagyl 500 mg Tablet] 500 mg PO TID #18 tablet 04/23/17 Allergies/Adverse Reactions: No Known Allergies Allergy (Verified 04/22/17 13:35) Review of Systems All systems: reviewed and no additional remarkable complaints except as stated - All systems were reviewed and were negative except as noted above Physical Exam Vital Signs: Temp Pulse Resp BP Pulse Ox 98.0 F 87 20 196/62 H 96 02/09/19 12:13 02/09/19 12:13 02/09/19 17:01 02/09/19 17:01 02/09/19 17:01 Intake & Output 02/08/19 02/09/19 02/10/19 06:59 06:59 06:59 Weight 70.5 kg General appearance: PRESENT: cooperative, mild distress - Anxious Head exam: PRESENT: atraumatic, normocephalic Eye exam: PRESENT: EOMI, PERRLA. ABSENT: conjunctival injection, nystagmus, scleral icterus Ear exam: PRESENT: normal external ear exam Mouth exam: PRESENT: moist, neck supple Throat exam: ABSENT: post pharyngeal erythema Neck exam: PRESENT: full ROM. ABSENT: carotid bruit, JVD, lymphadenopathy, meningismus, tenderness, thyromegaly Respiratory exam: PRESENT: clear to auscultation jeanne, symmetrical, unlabored. ABSENT: accessory muscle use, crackles, prolonged expiratory phas, rhonchi, ta chypnea, wheezes Cardiovascular exam: PRESENT: RRR, +S1, +S2 Pulses: PRESENT: normal carotid pulses Vascular exam: PRESENT: normal capillary refill GI/Abdominal exam: PRESENT: normal bowel sounds, soft. ABSENT: distended, guarding, rebound, tenderness Extremities exam: ABSENT: clubbing, pedal edema Musculoskeletal exam: PRESENT: normal inspection. ABSENT: deformity Neurological exam: PRESENT: alert, awake, oriented to person, oriented to place, oriented to time, oriented to situation, CN II-XII grossly intact, other. ABSENT: motor sensory deficit Psychiatric exam: PRESENT: anxious, normal mood Skin exam: PRESENT: dry, warm Results Laboratory Results: 02/09/19 13:50 02/09/19 13:50 02/09/19 02/09/19 13:50 13:50 WBC 3.8 L RBC 4.09 Hgb 13.1 Hct 38.9 MCV 95 MCH 32.1 MCHC 33.7 RDW 13.6 Plt Count 151 Seg Neutrophils % 65.5 Lymphocytes % 22.9 Monocytes % 9.9 Eosinophils % 1.5 Basophils % 0.2 Absolute Neutrophils 2.5 Absolute Lymphocytes 0.9 Absolute Monocytes 0.4 Absolute Eosinophils 0.1 Absolute Basophils 0.0 Sodium 140.8 Potassium 4.3 Chloride 103 Carbon Dioxide 29 Anion Gap 9 BUN 11 Creatinine 0.89 Est GFR ( Amer) > 60 Est GFR (Non-Af Amer) > 60 Glucose 91 Calcium 9.8 Magnesium 1.7 Total Bilirubin 0.9 AST 23 ALT 23 Alkaline Phosphatase 70 Total Protein 6.4 Albumin 3.9 02/09/19 02/09/19 13:50 13:50 Creatine Kinase 46 CK-MB (CK-2) 0.72 Troponin I 0.045 NT-Pro-B Natriuret Pep 1250 H Impressions: Chest X-Ray 02/09/19 13:32 IMPRESSION: 1. No acute pulmonary findings. 2. Additional findings as above. Assessment and Plan - Diagnosis (1) Hypertensive urgency Is this a current diagnosis for this admission?: Yes Plan: Fortunately no evidence of any sort of organ damage or compromise from her blood pressure. We will keep her on telemetry and check her thyroid levels. We will continue her lisinopril and will switch her HCTZ to chlorthalidone. Will give as needed hydralazine and check her blood pressure frequently. - Time Time Spent with patient: 35 or more minutes - Inpatient Certification Based on my medical assessment, after consideration of the patient's comorbidities, presenting symptoms, or acuity I expect that the services needed warrant INPATIENT care.: Yes I certify that my determination is in accordance with my understanding of Medicare's requirements for reasonable and necessary INPATIENT services [42 CFR 412.3e].: Yes Medical Necessity: Need Close Monitoring Due to Risk of Patient Decompensation, Need For Continuous Telemetry Monitoring, Risk of Complication if Not Cared For in Hospital
--- NOTE | 2019-02-09 18:40 | RADIOLOGY REPORT (SQ) ---
EXAM DESCRIPTION: CT HEAD WITHOUT COMPLETED DATE/TIME: 02/09/2019 6:25 pm REASON FOR STUDY: Uncontrolled hypertension, vomiting COMPARISON: MRI brain dated 01/31/2016 TECHNIQUE: Axial images acquired through the brain without intravenous contrast. Images reviewed wi th bone, brain and subdural windows. Additional sagittal and coronal reconstructions were generated. Images stored on PACS. All CT scanners at this facility use dose modulation, iterative reconstruction, and/or weight based d osing when appropriate to reduce radiation dose to as low as reasonably achievable (ALARA). [facility]: Dose Right [facility]: CareDose [facility]: Dose Right [facility]: Teradose 4D [facility]: [facility] RADIATION DOSE: CT Rad equipment meets quality standard of care and radiation dose reduction techniq ues were employed. CTDIvol: 53.2 mGy. DLP: 1097 mGy-cm.mGy. LIMITATIONS: None. FINDINGS: VENTRICLES: Prominent. CEREBRUM: No masses. No hemorrhage. No midline shift. Areas of low density in the white matter mos t likely due to chronic micro-vascular ischemic change. No evidence for acute infarction. CEREBELLUM: No masses. No hemorrhage. No alteration of density. No evidence for acute infarction. EXTRAAXIAL SPACES: Age-related involutional change. No fluid collections. No masses. ORBITS AND GLOBE: No intra- or extraconal masses. Normal contour of globe without masses. CALVARIUM: No fracture. PARANASAL SINUSES: No fluid or mucosal thickening. SOFT TISSUES: No mass or hematoma. OTHER: No other significant finding. IMPRESSION: CHRONIC CHANGES OF ATROPHY AND MICROVASCULAR ISCHEMIA. NO ACUTE PROCESS. EVIDENCE OF ACUTE STROKE: NO. TECHNICAL DOCUMENTATION: JOB ID: [id number] Quality ID # [id number]: Final reports with documentation of one or more dose reduction techniques (e.g., Au tomated exposure control, adjustment of the mA and/or kV according to patient size, use of iterative reconstruction technique) 2010 [employer]- All Rights Reserved Reading location - IP/workstation name: [email or web address]
[2019-02-09 19:01] LABS: FREE T4 (FREE THYROXINE) 1.3 ng/dL (0.78-2.19)
[2019-02-09 19:14] LABS: THYROID STIMULATING HORMONE 1.62 uIU/mL (0.47-4.68)
--- NOTE | 2019-02-09 19:17 | ER Document Report ---
Entered by ELIE VERA SCRIBE 02/09/19 1335 Acting as scribe for:SIVA CHAWLA MD ED Blood Pressure Problem - General Chief Complaint: High Blood Pressure Stated Complaint: BLOOD PRESSURE ISSUES Time Seen by Provider: 02/09/19 12:22 Primary Care Provider: LIO LENTZ MD [ACTIVE STAFF] - Follow up as needed Mode of Arrival: Ambulatory Information source: Patient, Relative Notes: Patient is an 88 year old female presenting to the emergency department complaining of elevated blood pressure onset this morning. Patient states she was at her neurologist's office when they recorded a blood pressure in the 200s systolic. She states they directed her to her PCP, Dr. Jara, who took her blood pressure then sent her to the emergency department. Patient also complains of bilateral lower extremity swelling onset 2 days ago. She states the swelling is exacerbated during the day. Patient is currently prescribed HCTZ and lisinopril (2x daily). She states she is complaint with her medications and took her dose this morning. TRAVEL OUTSIDE OF THE [place] IN LAST 30 DAYS: No - Related Data Allergies/Adverse Reactions: No Known Allergies Allergy (Verified 04/22/17 13:35) Past Medical History - General Information source: Patient - Social History Smoking Status: Never Smoker Frequency of alcohol use: None Drug Abuse: None Family History: None, Reviewed & Not Pertinent Patient has suicidal ideation: No Patient has homicidal ideation: No - Past Medical History Cardiac Medical History: Reports: Hx Hypertension GI Medical History: Reports: Hx Gastroesophageal Reflux Disease, Hx Hiatal Hernia Past Surgical History: Reports: Hx Hysterectomy, Other - Colonoscopy - Immunizations Hx Diphtheria, Pertussis, Tetanus Vaccination: No Review of Systems - Review of Systems Constitutional: See HPI EENT: No symptoms reported Cardiovascular: No symptoms reported Respiratory: No symptoms reported Gastrointestinal: No symptoms reported Genitourinary: No symptoms reported Female Genitourinary: No symptoms reported Musculoskeletal: No symptoms reported Skin: No symptoms reported Hematologic/Lymphatic: No symptoms reported Neurological/Psychological: No symptoms reported -: Yes All other systems reviewed and negative Physical Exam - Vital signs Vitals: Temp Pulse Resp BP Pulse Ox 98.0 F 87 18 234/98 H 97 02/09/19 12:13 02/09/19 12:13 02/09/19 12:13 02/09/19 12:13 02/09/19 12:13 - Notes Notes: GENERAL: Alert, interacts well. No acute distress. HEAD: Normocephalic, atraumatic. EYES: Pupils equal, round, and reactive to light. Extraocular movements intact. ENT: Oral mucosa moist, tongue midline. NECK: Full range of motion. Supple. Trachea midline. LUNGS: Clear to auscultation bilaterally, no wheezes, rales, or rhonchi. No respiratory distress. HEART: Regular rate and rhythm. No murmurs, gallops, or rubs. ABDOMEN: Soft, non-tender. Non-distended. Bowel sounds present in all 4 quadrants. No guarding, rigidity, or rebound. EXTREMITIES: Moves all 4 extremities spontaneously. Trace edema to the BLE. Radial and dorsalis pedis pulses 2/4 bilaterally. No cyanosis. NEUROLOGICAL: Alert and oriented x3. Normal speech. PSYCH: Normal affect, normal mood. SKIN: Warm, dry. No rashes or lesions noted. Course - Re-evaluation Re-evalutation: 02/09/19 15:51 I was called to see the patient urgently due to an episode of jerking her right upper extremity. She is completely awake and alert and knowledgeable what was going on. She states that her had to hold her arm down to keep it from jerking up and down. What ever happened has stopped at this time. Her blood pressure continues to remain at 222 systolic despite the hydralazine she receive d at 1530. She will receive an additional dose of metoprolol and reevaluated. 02/09/19 16:26 At this point the patient has received her normal hydrochlorothiazide 25 mg, lisinopril 20 mg p.o. She has also received Lopressor a total of 10 mg IV, and hydralazine 30 mg IV. Her blood pressures remains at 213/73. We will give her an additional 20 mg of hydralazine and recheck. At this time she states she feels fine and has no symptoms or complaints at all. She has not had any more episodes of her right arm jerking. 02/09/19 17:22 The patient has begun jerking and twitching her left lower extremity some, but she states this is a frequent problem at home. And she does appear little nervous with some tremor like activity in her upper chest neck and face. Her blood pressure has now come down to 170/108 with a pulse of 80. 02/09/19 17:37 The nurse informed me that she had additional jerking twitching activity involving all of her extremities and her chest and mouth, but she remained alert oriented and able to talk. She admits that these twitching episodes are not new, but seemed to be getting worse with time. She does see a local neurologist. 02/09/19 18:07 The patient became nauseous with some vomiting, so she was given 4 mg Zofran IV, 0.5 mg Ativan, and a CT scan of the head was ordered. - Vital Signs Vital signs: Temp Pulse Resp BP Pulse Ox 98.0 F 87 9 L 178/63 H 95 02/09/19 12:13 02/09/19 12:13 02/09/19 18:01 02/09/19 18:01 02/09/19 18:01 - Laboratory Result Diagrams: 02/09/19 13:50 02/09/19 13:50 Laboratory results interpreted by me: 02/09/19 02/09/19 02/09/19 13:50 13:50 13:50 WBC 3.8 L D-Dimer 0.96 H NT-Pro-B Natriuret Pep 1250 H - Diagnostic Test Radiology reviewed: Image reviewed, Reports reviewed - Chest x-ray shows cardiac silhouette upper limits of normal with no pulmonary vascular congestion. Noncontrast CT scan of the head does not show acute changes. - EKG Interpretation by Me EKG shows normal: Sinus rhythm, [place], Intervals, QRS Complexes, ST-T Waves Rate: Normal - 89 Rhythm: NSR - Consults Dr. Nielsen Time consulted: 17:25 Consulted provider: will come to ER Discharge - Discharge Clinical Impression: Uncontrolled hypertension, Occasional tremors High blood pressure disorder Qualifiers: Hypertension type: essential hypertension Qualified Code(s): I10 - Essential (primary) hypertension Condition: Stable Disposition: ADMITTED INPATIENT Admitting Provider: Gia (Hospitalist) Unit Admitted: Telemetry Referrals: LIO LENTZ MD [ACTIVE STAFF] - Follow up as needed Scribe Attestation: 02/09/19 17:36 I personally performed the services described in the documentation, reviewed and edited the documentation which was dictated to the scribe in my presence, and it accurately records my words and actions. I personally performed the services described in the documentation, reviewed and edited the documentation which was dictated to the scribe in my presence, and it accurately records my words and actions.
[2019-02-09] MEDS ORDERED: CHLORTHALIDONE 25 MG TABLET PO SCH (22:00)
[2019-02-09] MEDS: LISINOPRIL 10 MG TABLET PO SCH (22:03)
--- NOTE | 2019-02-09 23:28 | EKG REPORT ---
SEVERITY:- NORMAL ECG - SINUS RHYTHM : Confirmed by: Danitza Abreu 09-Feb-2019 23:28:15
[2019-02-10] MEDS: ACETAMINOPHEN 325 MG TABLET PO PRN ×2 (02:11→12:50)
[2019-02-10] MEDS: LISINOPRIL 10 MG TABLET PO SCH (09:57)
[2019-02-10] MEDS ORDERED: LEVOTHYROXINE SODIUM 0.05 MG TABLET PO SCH (10:00)
[2019-02-10] MEDS ORDERED: SERTRALINE HCL 50 MG TABLET PO SCH (10:00)
[2019-02-10] MEDS ORDERED: PANTOPRAZOLE SODIUM 20 MG TABLET.DR PO SCH (10:00)
[2019-02-10] MEDS ORDERED: (PENDING PHARMACY ID) (Vitamin B Complex [Vitamin B Complex] 1 TAB) PO SCH (10:00)
[2019-02-10 14:21] VITALS: BP 116/32
--- NOTE | 2019-02-13 07:45 | PDOC DISCHARGE SUMMARY ---
General - Admit/Disc Date/PCP Admission Date/Primary Care Provider: 02/09/19 19:10 JENNIFER PRADHAN PA-C Discharge Date: 02/10/19 - Discharge Diagnosis (1) Hypertensive urgency Is this a current diagnosis for this admission?: Yes Summary: The patient presented with isolated systolic hypertension with systolic blood pressures greater than 100. Diastolic blood pressures were consistently less than 90. The patient was completely asymptomatic. Her lisinopril 20 mg twice daily was discontinued and chlorthalidone was added. Over the course of the night her blood pressure proceeded to improve. In the morning she was down to 116/32. I told her that she should go home. She should measure her blood pressures at home. She is going to follow-up with her primary care provider lat er this week or next week. It is odd to see such a huge variation in systolic pressures over such a short time. Because her pressures were much better this morning I will discharge her to home. (2) Essential hypertension Is this a current diagnosis for this admission?: Yes Summary: As noted above. She should measure her blood pressures at home. She should ensure that she has the right size blood pressure cuff. She should very locations as well. If she continues to have such a wide variation consider cardiology assessment. (3) Intermittent tremor Is this a current diagnosis for this admission?: Yes Summary: The patient was going to her neurologist appointment yesterday. They have many questions about her tremor. I briefly explained that there are multiple types of tremor including intention tremor and resting tremor as well as tremors associated with other illness ease. I encouraged her to reschedule with her neurologist as soon as possible. It is unlikely that the tremor is related to the blood pressure as it is intermittent. Follow-up with neurology as originally recommended. - Additional Information Prescriptions: Chlorthalidone [Hygroton 25 mg Tablet] 25 mg PO QHS 14 Days #14 tablet Lisinopril 20 mg PO BID 14 Days #28 tablet Home Medications: Aspirin [Aspirin 81 mg Chewable Tablet] 81 mg PO DAILY 02/09/19 Ergocalciferol (Vitamin D2) [Drisdol 50,000 unit (1.25MG) Capsule] 50,000 unit PO FR 02/09/19 Levothyroxine Sodium [Synthroid 0.05 mg Tablet] 0.05 mg PO Q6AM 02/09/19 Lisinopril [Zestril] 20 mg PO BID 02/09/19 Omeprazole 20 mg PO DAILY 02/09/19 Ropinirole HCl [Requip] 1 mg PO TID 02/09/19 Sertraline HCl [Zoloft 50 mg Tablet] 50 mg PO DAILY 02/09/19 Chlorthalidone [Hygroton 25 mg Tablet] 25 mg PO QHS 14 Days #14 tablet 02/10/19 Levothyroxine Sodium [Synthroid 0.05 mg Tablet] 0.05 mg PO DAILY tablet 02/10/19 Lisinopril 20 mg PO BID 14 Days #28 tablet 02/10/19 Lisinopril [Prinivil 10 mg Tablet] 20 mg PO Q12 tablet 02/10/19 Sertraline HCl [Zoloft 50 mg Tablet] 50 mg PO DAILY tablet 02/10/19 Vitamin B Complex [Vitamin B Complex] 1 tab PO .DAILY 02/10/19 History of Present Illness Patient complains of: The patient actually had no complaints on admission. She was referred to the emergency department because of blood pressure assessments first at the neurology appointment and then at her primary care provider's office. History of Present Illness: REENA HERNANDEZ is a 88 year old female with a history of hypertension and tremor. She occasionally gets lower extremity edema by her own admission. She states that she was being seen at a neurology office for assessment of a tremor. Upon initial screening her blood pressure was markedly elevated with systolic blood pressure greater than 200. She was instructed to go to her primary care provider's office. On assessment there her systolic blood pressure was again elevated likewise. She was referred to the emergency department. Initial blood pressures in the emergency department were consistent with systolic pressure greater than 200 and her diastolic pressures were normal. She was referred to the hospital service for admission and treatment. Hospital Course Hospital Course: The patient had an unremarkable hospital course. As noted above chlorthalidone was added to her regimen. To the course of the nitro blood pressures consistently improved. Her pressure this morning was in fact normal with a systolic of 116. The patient will be discharged with the addition of chlorthalidone. She was referred back to her primary care provider and she should continue with her neurology evaluation. Physical Exam Vital Signs: Temp Pulse Resp BP Pulse Ox 97.7 F 81 16 149/56 H 97 02/10/19 09:02 02/10/19 09:02 02/10/19 09:02 02/10/19 09:02 02/10/19 09:02 Intake & Output 02/09/19 02/10/19 02/11/19 06:59 06:59 06:59 Weight 72.6 kg General appearance: PRESENT: no acute distress, cooperative, well-developed Head exam: PRESENT: atraumatic, normocephalic Ear exam: PRESENT: normal external ear exam Mouth exam: PRESENT: moist, neck supple, tongue midline Respiratory exam: PRESENT: clear to auscultation jeanne, symmetrical, unlabored. ABSENT: rales, rhonchi, tachypnea, wheezes Cardiovascular exam: PRESENT: RRR, +S1, +S2 GI/Abdominal exam: PRESENT: normal bowel sounds, soft. ABSENT: distended, tenderness Rectal exam: PRESENT: deferred Gentrourinary exam: ABSENT: indwelling catheter Extremities exam: ABSENT: calf tenderness, pedal edema Musculoskeletal exam: PRESENT: deformity Neurological exam: PRESENT: alert, awake, oriented to person, oriented to place, oriented to time, oriented to situation, CN II-XII grossly intact, other - I did observe a mild tremor at the time of this encounter.. ABSENT: motor sensory deficit Psychiatric exam: PRESENT: appropriate affect, normal mood. ABSENT: agitated, anxious Focused psych exam: ABSENT: delusional, restlessness Results Laboratory Results: 02/09/19 13:50 02/09/19 13:50 02/09/19 02/09/19 02/09/19 13:50 13:50 13:50 WBC 3.8 L RBC 4.09 Hgb 13.1 Hct 38.9 MCV 95 MCH 32.1 MCHC 33.7 RDW 13.6 Plt Count 151 Seg Neutrophils % 65.5 Lymphocytes % 22.9 Monocytes % 9.9 Eosinophils % 1.5 Basophils % 0.2 Absolute Neutrophils 2.5 Absolute Lymphocytes 0.9 Absolute Monocytes 0.4 Absolute Eosinophils 0.1 Absolute Basophils 0.0 Sodium 140.8 Potassium 4.3 Chloride 103 Carbon Dioxide 29 Anion Gap 9 BUN 11 Creatinine 0.89 Est GFR ( Amer) > 60 Est GFR (Non-Af Amer) > 60 Glucose 91 Calcium 9.8 Magnesium 1.7 Total Bilirubin 0.9 AST 23 ALT 23 Alkaline Phosphatase 70 Total Protein 6.4 Albumin 3.9 TSH 1.62 Free T4 1.30 02/09/19 02/09/19 13:50 13:50 Creatine Kinase 46 CK-MB (CK-2) 0.72 Troponin I 0.045 NT-Pro-B Natriuret Pep 1250 H Impressions: Chest X-Ray 02/09/19 13:32 IMPRESSION: 1. No acute pulmonary findings. 2. Additional findings as above. Head CT 02/09/19 17:57 IMPRESSION: CHRONIC CHANGES OF ATROPHY AND MICROVASCULAR ISCHEMIA. NO ACUTE PROCESS. EVIDENCE OF ACUTE STROKE: NO. Qualifiers - * PATIENT BEING DISCHARGED WITH ANY OF THE FOLLOWING DIAGNOSIS: No Acute Heart Failure Is this a Heart Failure Patient?: No Plan Discharge Plan: As outlined above Time Spent: Greater than 30 Minutes
== END 2019-02-10 14:32 | disposition home or self-care (01) ==
LOC: ER 12:05 → INTOOBSV 19:10 → EH 19:10 → 4S 20:44
PROVIDERS: ADMIT Family Medicine; ATTEND Family Medicine
DX: I16.0 Hypertensive urgency (principal); G25.2 Other specified forms of tremor; K21.9 Gastro-esophageal reflux disease without esophagitis; R60.0 Localized edema; R11.2 Nausea with vomiting, unspecified; Z79.899 Other long term (current) drug therapy; Z79.82 Long term (current) use of aspirin
CPT/HCPCS: 93005; 96376; 99285; 96374; 96375; 36415; 84439; 82553; 82550; 83735; 84443; 85025; 80053; 84484; 85379; 83880; 71045; 70450; 93010; A9270 ×6; J0360; J3490 ×2; J2060; J2405

== ENCOUNTER 2019-02-12 21:25 | Emergency (ER) | payer MEDICARE, OTHER ==
--- NOTE | 2019-02-12 22:29 | ER Document Report ---
ED Medical Screen (RME) - General Chief Complaint: High Blood Pressure Stated Complaint: BLOOD PRESSURE ISSUE Time Seen by Provider: 02/12/19 22:20 Primary Care Provider: JENNIFER PRADHAN PA-C [Primary Care Provider] - Follow up as needed Notes: Patient is a 88-year-old female presents to the emergency department for hypertension. Patient states she was discharged from this facility for her high blood pressure. States she has been taking her blood pressure at home for continued care. States she noticed that it was elevated today and she also has a generalized headache which is why she presents to the emergency room. Patient is unsure of the medications that were added to her regimen for her hypertension. GENERAL: Alert, interacts well. No acute distress. HEAD: Normocephalic, atraumatic. NEUROLOGICAL: Alert and oriented x3. Normal speech. [place] CVA scale 0 I have greeted and performed a rapid initial assessment of this patient. A comprehensive ED assessment and evaluation of the patient, analysis of test results and completion of the medical decision making process will be conducted by additional ED providers. This medical record was dictated with voice recognizing software. There may be grammatical, syntax errors that are unintended. TRAVEL OUTSIDE OF THE [place] IN LAST 30 DAYS: No - Related Data Allergies/Adverse Reactions: No Known Allergies Allergy (Verified 02/12/19 22:24) Past Medical History - Social History Frequency of alcohol use: Rare Drug Abuse: None - Past Medical History Cardiac Medical History: Reports: Hx Hypertension Denies: Hx Coronary Artery Disease - HYPERCHOLESTEROLEMIA, Hx Heart Attack Pulmonary Medical History: Denies: Hx Asthma, Hx Bronchitis, Hx COPD, Hx Pneumonia Neurological Medical History: Denies: Hx Cerebrovascular Accident, Hx Seizures Renal/ Medical History: Denies: Hx Peritoneal Dialysis GI Medical History: Reports: Hx Gastroesophageal Reflux Disease, Hx Hiatal Hernia. Denies: Hx Hepatitis, Hx Ulcer Infectious Medical History: Denies: Hx Hepatitis Past Surgical History: Reports: Hx Hysterectomy, Other - Colonoscopy. Denies: Hx Mastectomy, Hx Open Heart Surgery, Hx Pacemaker - Immunizations Hx Diphtheria, Pertussis, Tetanus Vaccination: No Physical Exam - Vital signs Vitals: Temp Pulse Resp BP Pulse Ox 98.2 F 86 22 H 224/74 H 97 02/12/19 21:39 02/12/19 21:39 02/12/19 21:39 02/12/19 21:39 02/12/19 21:39 Course - Vital Signs Vital signs: Temp Pulse Resp BP Pulse Ox 98.2 F 86 19 174/66 H 97 02/12/19 21:39 02/12/19 22:24 02/12/19 22:24 02/12/19 22:24 02/12/19 22:24 Doctor's Discharge - Discharge Referrals: JENNIFER PRADHAN PA-C [Primary Care Provider] - Follow up as needed
--- NOTE | 2019-02-12 23:01 | RADIOLOGY REPORT (SQ) ---
EXAM DESCRIPTION: CT HEAD WITHOUT IV CONTRAST COMPLETED DATE/TME: 02/12/2019 22:29 CLINICAL HISTORY: HTN headache COMPARISON: February 09, 2019 TECHNIQUE: Contiguous axial images of the brain were obtained without the administration of intravenous contrast.This exam was performed according to our departmental dose-optimization program, which includes automated exposure control, adjustment of the mA and/or kV according to patient size and/or use of iterative reconstruction technique. FINDINGS: There is no acute intracranial hemorrhage or mass effect. Areas of low attenuation in the periventricular and subcortical white matter are nonspecific but suggestive of small vessel disease. There is generalized atrophy. Ventricular system is within normal limits. There is adequate coreas-white matter differentiation. There is no skull fracture. The visualized paranasal sinuses and mastoid air cells are within normal limits. There is atherosclerosis. IMPRESSION: No acute intracranial abnormalities.
--- NOTE | 2019-02-12 23:12 | RADIOLOGY REPORT (SQ) ---
EXAM DESCRIPTION: XR CHEST 1 VIEW COMPLETED DATE/TME: 02/12/2019 22:34 CLINICAL HISTORY: 88 years Female HTN COMPARISON: 02/09/2019 FINDINGS: The cardiomediastinal silhouette appears unremarkable. No consolidating infiltrates or pleural effusions. No pneumothorax. Elevation of the left hemidiaphragm. IMPRESSION: No acute abnormality is identified.
[2019-02-12 23:31] LABS: ABSOLUTE EOSINOPHILS # (AUTO) 0.1 10^3/uL (0.0-0.6); ABSOLUTE MONOCYTES (AUTO) 0.5 10^3/uL (0.1-1.4); ABSOLUTE NEUT (AUTO) 2.5 10^3/uL (1.7-8.2); BASOPHILS % (AUTO) 0.8 % (0-2); EOSINOPHILS % (AUTO) 2.5 % (0-6); HEMATOCRIT 39.2 % (36.0-47.0); LYMPHOCYTES % (AUTO) 24.6 % (13-45); MEAN CORPUSCULAR HEMOGLOBIN 31.6 pg (27.0-33.4); MEAN CORPUSCULAR HGB CONC 33.2 g/dL (32.0-36.0); MEAN CORPUSCULAR VOLUME 95 fl (80-97); MONOCYTES % (AUTO) 11.2 % (3-13); PLATELET COUNT 159 10^3/uL (150-450); RED BLOOD COUNT 4.12 10^6/uL (3.72-5.28); RED CELL DISTRIBUTION WIDTH 13.2 % (11.5-14.0); SEGMENTED NEUTROPHILS % (AUTO) 60.9 % (42-78); TOTAL CELLS COUNTED % (AUTO) 100 %; WHITE BLOOD COUNT 4.2 10^3/uL (4.0-10.5)
[2019-02-12 23:49] LABS: APPEARANCE,URINE CLOUDY; BILIRUBIN,URINE NEGATIVE (NEGATIVE); COLOR,URINE AMBER; GLUCOSE, URINE NEGATIVE (NEGATIVE); KETONES,URINE NEGATIVE (NEGATIVE); LEUKOCYTE ESTERASE,URINE LARGE (NEGATIVE); NITRITE,URINE NEGATIVE (NEGATIVE); PROTEIN,URINE NEGATIVE (NEGATIVE); UROBILINOGEN,URINE NEGATIVE mg/dL (<2.0)
[2019-02-12 23:49] LABS: ALANINE AMINOTRANSFERASE 20 U/L (9-52); ALBUMIN 4.2 g/dL (3.5-5.0); ALKALINE PHOSPHATASE 73 U/L (38-126); ANION GAP 10 (5-19); ASPARTATE AMINO TRANSFERASE 22 U/L (14-36); BILIRUBIN,DIRECT 0.3 mg/dL (0.0-0.4); BILIRUBIN,TOTAL 0.5 mg/dL (0.2-1.3); BLOOD UREA NITROGEN 13 mg/dL (7-20); CALCIUM 10.1 mg/dL (8.4-10.2); CARBON DIOXIDE 29 mmol/L (22-30); CHLORIDE 97 mmol/L (98-107); GLUCOSE 101 mg/dL (75-110); POTASSIUM 3.9 mmol/L (3.6-5.0); SODIUM 135.5 mmol/L (137-145); TOTAL PROTEIN 6.5 g/dL (6.3-8.2)
--- NOTE | 2019-02-13 03:53 | ER Document Report ---
ED General - General Chief Complaint: High Blood Pressure Stated Complaint: BLOOD PRESSURE ISSUE Time Seen by Provider: 02/12/19 22:20 Primary Care Provider: JENNIFER PRADHAN PA-C [Primary Care Provider] - Follow up as needed TRAVEL OUTSIDE OF THE [place] IN LAST 30 DAYS: No - HPI Notes: Patient is an 88-year-old female who presents to the emergency department for evaluation of elevated blood pressure. In short, the patient was seen in her neurologist office recently. Her blood pressure was found to be over 200. She was referred from there to her primary care physician's office, then onto the hospital. She was admitted to the hospital. Her blood pressure prior to that had really not been checked. She states she does have a very mild headache in the top of her head. This is not a new sensation for her. She states that she has had no double vision, blurred vision in the morning but she believes she needs new glasses. She denies any difficulty speaking or swallowing. No chest pain or shortness of breath. She still urinating normally. Moving her arms and legs without difficulty. She states she taking her medications as prescribed. She been taking her blood pressure at home, she has had blood pressure anywhere from the 150s to the 200 range. It was over 200 tonight so she came to the emergency department for further evaluation - Related Data Allergies/Adverse Reactions: No Known Allergies Allergy (Verified 02/12/19 22:24) Past Medical History - General Information source: Patient - Social History Smoking Status: Former Smoker Frequency of alcohol use: Rare Drug Abuse: None Family History: None, Reviewed & Not Pertinent Patient has suicidal ideation: No Patient has homicidal ideation: No - Past Medical History Cardiac Medical History: Reports: Hx Hypertension Denies: Hx Coronary Artery Disease - HYPERCHOLESTEROLEMIA, Hx Heart Attack Pulmonary Medical History: Denies: Hx Asthma, Hx Bronchitis, Hx COPD, Hx Pneumonia Neurological Medical History: Denies: Hx Cerebrovascular Accident, Hx Seizures Renal/ Medical History: Denies: Hx Peritoneal Dialysis GI Medical History: Reports: Hx Gastroesophageal Reflux Disease, Hx Hiatal Hernia. Denies: Hx Hepatitis, Hx Ulcer Infectious Medical History: Denies: Hx Hepatitis Past Surgical History: Reports: Hx Hysterectomy, Other - Colonoscopy. Denies: Hx Mastectomy, Hx Open Heart Surgery, Hx Pacemaker - Immunizations Hx Diphtheria, Pertussis, Tetanus Vaccination: No Review of Systems - Review of Systems Constitutional: No symptoms reported EENT: No symptoms reported Cardiovascular: No symptoms reported Respiratory: No symptoms reported Gastrointestinal: No symptoms reported Genitourinary: No symptoms reported Musculoskeletal: No symptoms reported Skin: No symptoms reported Neurological/Psychological: No symptoms reported Physical Exam - Vital signs Vitals: Temp Pulse Resp BP Pulse Ox 98.2 F 86 22 H 224/74 H 97 02/12/19 21:39 02/12/19 21:39 02/12/19 21:39 02/12/19 21:39 02/12/19 21:39 - Notes Notes: Vital signs reviewed, please refer to chart. Head is normocephalic, atraumatic. Pupils round, reactive to light. Pupils are unequal, right 5 mm, left 3 mm, but this is stable per patient. Neck is supple without meningismus. Heart is regular rate and rhythm. Lungs are clear to auscultation bilaterally. Abdomen is soft, nontender, normoactive bowel sounds throughout. Extremities without cyanosis, clubbing. Posterior calves are nontender. Peripheral pulses are equal. Skin is warm and dry. Patient is awake, alert, and at x3. Cranial nerves II through XII are grossly intact without focal neurological deficits. Strength is plus 5 out of 5 bilateral upper and lower extremities. Sensation is intact. Intact [id number], rapid eye movements, [id number]. Reflexes are symmetrical. Course - Re-evaluation Re-evalutation: 02/13/19 03:53 Patient presents to the emergency department for evaluation. Her blood pressure is indeed elevated here. Her initial blood pressure was over 200. On recheck her blood pressures have been primarily in the 170s to 180s over 90s. The patient is having absolutely no signs of endorgan damage. Her laboratory investigations, imaging, EKG are unremarkable. I had an extensive conversation with the patient as well as her daughter. We discussed appropriate cerebral perfusion pressure, dropping blood pressure too rapidly causing more harm than good. The patient and daughter seem to understand. We did discuss the importance of good blood pressure control overall, and the need to follow-up with primary care. Certainly she may require further medication adjustments, but she just started the chlorthalidone 2 days ago. She has an appointment with her primary care physician on Friday. They are strongly encouraged to keep it, as well as to keep the blood pressure log going, bring with him to this appointment. They voiced understanding to this and the patient was discharged. - Vital Signs Vital signs: Temp Pulse Resp BP Pulse Ox 98.2 F 86 16 188/70 H 96 02/12/19 21:39 02/12/19 22:24 02/13/19 01:02 02/13/19 02:02 02/13/19 02:02 - Laboratory Result Diagrams: 02/12/19 23:15 02/12/19 23:15 Laboratory results interpreted by me: 02/12/19 02/12/19 23:15 23:22 Sodium 135.5 L Chloride 97 L Urine Blood SMALL H Ur Leukocyte Esterase LARGE H - Diagnostic Test Radiology reviewed: Reports reviewed Radiology results interpreted by me: 02/13/19 03:[address] 02/12/19 22:29 IMPRESSION: No acute intracranial abnormalities. Chest X-Ray 02/12/19 22:34 IMPRESSION: No acute abnormality is identified. - EKG Interpretation by Me Additional EKG results interpreted by me: 02/13/19 03:55 Sinus mechanism with rate of 73 bpm. Normal axis and intervals, no acute ST changes concerning for ischemia or infarction. Discharge - Discharge Clinical Impression: Essential hypertension Condition: Stable Disposition: HOME, SELF-CARE Additional Instructions: Your blood pressure does remain elevated here today. As discussed, it is important that we do not lower your blood pressure acutely. If we do that, we will markedly decreased your cerebral perfusion pressure, and you are at risk of having an acute stroke as a result. It is however, important that you continue to seek out good blood pressure control. Continue your blood pressure log. Take your medications as prescribed, when prescribed. Follow-up with your doctor as scheduled on Friday. Bring that log with you. If you develop worsening or new concerning symptoms of any sort, return immediately to the emergency department for reevaluation. Referrals: JENNIFER PRADHAN PA-C [Primary Care Provider] - Follow up as needed
[2019-02-13 04:33] VITALS: BP 182/59
--- NOTE | 2019-02-13 11:12 | EKG REPORT ---
SEVERITY:- NORMAL ECG - SINUS RHYTHM : Confirmed by: Danitza Abreu 13-Feb-2019 11:11:39
== END 2019-02-13 04:34 | disposition home or self-care (01) ==
LOC: ER 21:25
DX: I10 Essential (primary) hypertension (principal); R51 Headache; Z90.710 Acquired absence of both cervix and uterus
CPT/HCPCS: 36415; 70450; 71045; 80053; 81001; 84484; 85025; 87086; 87088; 87186; 93005; 93010; 99284

== ENCOUNTER 2019-12-23 16:39 | Emergency (ER) | payer MEDICARE, OTHER ==
[2019-12-23] MEDS ORDERED: ACETAMINOPHEN 325 MG TABLET PO ONE (17:14)
--- NOTE | 2019-12-23 17:15 | ER Document Report ---
HPI - HPI Time Seen by Provider: 12/23/19 17:02 Notes: 89-year-old female patient presenting to the emergency department chief complaint of right foot pain. Patient reports this morning she tripped and fell twisting her foot. She reports she is able to ambulate on it but the pain has been intensifying through the day. She has not taken any medication for this. Denies any history of fracture to this area. - REPRODUCTIVE Reproductive: DENIES: : Past Medical History - General Information source: Patient - Social History Smoking Status: Never Smoker Family History: None, Reviewed & Not Pertinent - Past Medical History Cardiac Medical History: Reports: Hx Hypertension Denies: Hx Coronary Artery Disease - HYPERCHOLESTEROLEMIA, Hx Heart Attack Pulmonary Medical History: Denies: Hx Asthma, Hx Bronchitis, Hx COPD, Hx Pneumonia Neurological Medical History: Denies: Hx Cerebrovascular Accident, Hx Seizures Renal/ Medical History: Denies: Hx Peritoneal Dialysis GI Medical History: Reports: Hx Gastroesophageal Reflux Disease, Hx Hiatal Hernia. Denies: Hx Hepatitis, Hx Ulcer Infectious Medical History: Denies: Hx Hepatitis Past Surgical History: Reports: Hx Hysterectomy, Other - Colonoscopy. Denies: Hx Mastectomy, Hx Open Heart Surgery, Hx Pacemaker - Immunizations Hx Diphtheria, Pertussis, Tetanus Vaccination: No Vertical Provider Document - INFECTION CONTROL TRAVEL OUTSIDE OF THE [place] IN LAST 30 DAYS: No - HEENT HEENT: Atraumatic - NECK Neck: Normal Inspection - RESPIRATORY Respiratory: Breath Sounds Normal, No Respiratory Distress - CARDIOVASCULAR Cardiovascular: Regular Rate - GI/ABDOMEN Gastrointestinal: Abdomen Soft - BACK Back: Normal Inspection - MUSCULOSKELETAL/EXTREMETIES Notes: Right foot tenderness with palpation on the lateral aspect, mild swelling noted. - NEURO Level of Consciousness: Awake, Alert, Appropriate Course - Re-evaluation Re-evalutation: Ankle X-Ray 12/23/19 17:13 IMPRESSION: Acute transverse fracture base right 5th metatarsal Foot X-Ray 12/23/19 17:13 IMPRESSION: Acute nondisplaced fracture base right 5th metatarsal - Vital Signs Vital signs: Temp Pulse Resp BP Pulse Ox 98.1 F 83 16 168/59 H 96 12/23/19 16:47 12/23/19 16:47 12/23/19 16:47 12/23/19 16:47 12/23/19 16:47 Procedures - Immobilization Right foot Immobilizer type: Crutches, Posterior ankle Performed by: PCT Post-Proc Neuro Vasc Exam: Normal Discharge - Discharge Clinical Impression: Metatarsal fracture Qualifiers: Encounter type: initial encounter Metatarsal bone: fifth Fracture type: closed Fracture alignment: nondisplaced Laterality: right Qualified Code(s): S92.354A - Nondisplaced fracture of fifth metatarsal bone, right foot, initial encounter for closed fracture Condition: Stable Disposition: HOME, SELF-CARE Additional Instructions: Please follow-up with orthopedics, call them tomorrow to schedule an appointment. Their phone number is below. In the meantime please take Tylenol 650 mg every 4 hours. Elevate the extremity. Keep the splint in place. Apply ice. Referrals: RODOLFO MORIN, [ACTIVE STAFF] - Follow up as needed
--- NOTE | 2019-12-23 17:59 | RADIOLOGY REPORT (SQ) ---
EXAM DESCRIPTION: FOOT RIGHT COMPLETE COMPLETED DATE/TIME: 12/23/2019 5:34 pm REASON FOR STUDY: fall COMPARISON: None. NUMBER OF VIEWS: Three views. TECHNIQUE: AP, lateral and oblique radiographic images acquired of the right foot. LIMITATIONS: None. FINDINGS: MINERALIZATION: Osteopenic BONES: Acute nondisplaced fracture base right 5th metatarsal, without gross extension into the 5th ta rsometatarsal joint. Old hallux valgus surgery with hardware. JOINTS: No effusions. SOFT TISSUES: No soft tissue swelling. No foreign body. OTHER: No other significant finding. IMPRESSION: Acute nondisplaced fracture base right 5th metatarsal TECHNICAL DOCUMENTATION: JOB ID: [id number] 2010 [employer]- All Rights Reserved Reading location - IP/workstation name: [email or web address]
--- NOTE | 2019-12-23 18:06 | RADIOLOGY REPORT (SQ) ---
EXAM DESCRIPTION: ANKLE RIGHT COMPLETE COMPLETED DATE/TIME: 12/23/2019 5:34 pm REASON FOR STUDY: fall COMPARISON: None. NUMBER OF VIEWS: Three views. TECHNIQUE: AP, lateral, and oblique radiographic images acquired of the right ankle. LIMITATIONS: None. FINDINGS: MINERALIZATION: Osteopenic BONES: Acute transverse fracture base right 5th metatarsal the bottom edge of the field of view. Dis schuyler tibia, fibula, talus, calcaneus, hindfoot otherwise unremarkable JOINTS: No effusions. SOFT TISSUES: No soft tissue swelling. No foreign body. OTHER: No other significant finding. IMPRESSION: Acute transverse fracture base right 5th metatarsal TECHNICAL DOCUMENTATION: JOB ID: [id number] 2010 [employer]- All Rights Reserved Reading location - IP/workstation name: [email or web address]
[2019-12-23 19:18] VITALS: BP 154/60
== END 2019-12-23 19:16 | disposition home or self-care (01) ==
LOC: ER 16:39
DX: S92.354A Nondisplaced fracture of fifth metatarsal bone, right foot, initial encounter for closed fracture (principal); W19.XXXA Unspecified fall, initial encounter; I10 Essential (primary) hypertension
CPT/HCPCS: 99283; 73610; 73630; 29515; A9270

== ENCOUNTER 2020-01-04 22:32 | Emergency (ER) | payer MEDICARE, OTHER ==
[2020-01-04 22:55] LABS: ABSOLUTE EOSINOPHILS # (AUTO) 0.1 10^3/uL (0.0-0.6); ABSOLUTE LYMPHOCYTES (AUTO) 1.7 10^3/uL (0.5-4.7); ABSOLUTE MONOCYTES (AUTO) 0.7 10^3/uL (0.1-1.4); ABSOLUTE NEUT (AUTO) 3.3 10^3/uL (1.7-8.2); BASOPHILS % (AUTO) 0.7 % (0-2); EOSINOPHILS % (AUTO) 2.1 % (0-6); HEMATOCRIT 40.5 % (36.0-47.0); LYMPHOCYTES % (AUTO) 28.4 % (13-45); MEAN CORPUSCULAR HEMOGLOBIN 32.8 pg (27.0-33.4); MEAN CORPUSCULAR HGB CONC 34.5 g/dL (32.0-36.0); MEAN CORPUSCULAR VOLUME 95 fl (80-97); MONOCYTES % (AUTO) 12.7 % (3-13); PLATELET COUNT 168 10^3/uL (150-450); RED BLOOD COUNT 4.26 10^6/uL (3.72-5.28); SEGMENTED NEUTROPHILS % (AUTO) 56.1 % (42-78); TOTAL CELLS COUNTED % (AUTO) 100 %; WHITE BLOOD COUNT 5.9 10^3/uL (4.0-10.5)
[2020-01-04 23:11] LABS: ALBUMIN 4.4 g/dL (3.5-5.0); ALKALINE PHOSPHATASE 73 U/L (38-126); ANION GAP 10 (5-19); ASPARTATE AMINO TRANSFERASE 35 U/L (14-36); BILIRUBIN,DIRECT 0.3 mg/dL (0.0-0.4); BILIRUBIN,TOTAL 0.8 mg/dL (0.2-1.3); BLOOD UREA NITROGEN 20 mg/dL (7-20); CALCIUM 9.6 mg/dL (8.4-10.2); CARBON DIOXIDE 33 mmol/L (22-30); CHLORIDE 85 mmol/L (98-107); GLUCOSE 99 mg/dL (75-110); TOTAL PROTEIN 7.4 g/dL (6.3-8.2)
--- NOTE | 2020-01-04 23:17 | RADIOLOGY REPORT (SQ) ---
EXAM DESCRIPTION: XR CHEST 2 VIEWS COMPLETED DATE/TME: 01/04/2020 22:46 CLINICAL HISTORY: 89 years, Female, chest pain COMPARISON: Prior study from 04/22/2017 NUMBER OF VIEWS: 2 TECHNIQUE: Frontal and lateral radiographs were obtained LIMITATIONS: None. FINDINGS: Cardiac and mediastinal contours are stable. Lungs are clear. No pleural effusion or pneumothorax. IMPRESSION: No acute disease. copyright 2010 [employer]- All Rights Reserved
[2020-01-04] MEDS ORDERED: POTASSIUM CHLORIDE 20 MEQ PACKET PO ONE (23:29)
[2020-01-04] MEDS ORDERED: POTASSIUM CHLORIDE 10 MEQ TABLET.ER PO ONE (23:29)
[2020-01-04] MEDS ORDERED: NORMAL SALINE 1000 ML 1,000 ML IV ONE (23:32)
--- NOTE | 2020-01-05 00:13 | ER Document Report ---
ED General - General Chief Complaint: Chest Pain Stated Complaint: CHEST PAIN Time Seen by Provider: 01/04/20 22:45 Primary Care Provider: PRAKASH GARCES PA-C [Primary Care Provider] - Follow up as needed Mode of Arrival: Ambulatory Information source: Patient TRAVEL OUTSIDE OF THE [place] IN LAST 30 DAYS: No - HPI Onset: Other - over the last week Onset/Duration: Sudden Quality of pain: Pressure Severity: Mild Pain Level: 2 Associated symptoms: None Exacerbated by: Denies Relieved by: Other - rubbing her chest Similar symptoms previously: No Recently seen / treated by doctor: Yes - Patient seen in the ER on 12/23/19 for a 5th metatarsal fracture Notes: 89 year old female with a history of HTN, HLD, GERD who just fractured her right 5th metatarsal earlier in the month here tonight for off and on chest pain for the last week. The patient says she has quick 3-5 min spells of chest pains which come on usually when she is sitting down. The patient denies nausea, vomiting, sweating, shortness of breath, radiation of pain to her arms or jaw, fevers, chills. When she has the chest pain, it is made better with rubbing her chest. The patient thinks she had a cardiac stress test about 10 years ago which was normal. - Related Data Allergies/Adverse Reactions: No Known Allergies Allergy (Verified 02/12/19 22:24) Past Medical History - General Information source: Patient - Social History Smoking Status: Former Smoker Frequency of alcohol use: None Drug Abuse: None Lives with: Family Family History: None, Reviewed & Not Pertinent Patient has suicidal ideation: No Patient has homicidal ideation: No - Past Medical History Cardiac Medical History: Reports: Hx Hypercholesterolemia, Hx Hypertension Denies: Hx Coronary Artery Disease - HYPERCHOLESTEROLEMIA, Hx Heart Attack Pulmonary Medical History: Denies: Hx Asthma, Hx Bronchitis, Hx COPD, Hx Pneumonia Neurological Medical History: Denies: Hx Cerebrovascular Accident, Hx Seizures Renal/ Medical History: Denies: Hx Peritoneal Dialysis GI Medical History: Reports: Hx Gastroesophageal Reflux Disease, Hx Hiatal Hernia. Denies: Hx Hepatitis, Hx Ulcer Infectious Medical History: Denies: Hx Hepatitis Past Surgical History: Reports: Hx Hysterectomy, Other - Colonoscopy. Denies: Hx Mastectomy, Hx Open Heart Surgery, Hx Pacemaker - Immunizations Hx Diphtheria, Pertussis, Tetanus Vaccination: No Review of Systems - Review of Systems Constitutional: No symptoms reported EENT: No symptoms reported Cardiovascular: Chest pain Respiratory: No symptoms reported Gastrointestinal: No symptoms reported Genitourinary: No symptoms reported Female Genitourinary: No symptoms reported Musculoskeletal: No symptoms reported Skin: No symptoms reported Hematologic/Lymphatic: No symptoms reported Neurological/Psychological: No symptoms reported -: Yes All other systems reviewed and negative Physical Exam - Vital signs Vitals: Resp BP Pulse Ox 17 194/65 H 99 01/04/20 22:45 01/04/20 22:45 01/04/20 22:45 - Notes Notes: GENERAL: Well-appearing, well-nourished and in no acute distress. HEAD: Atraumatic, normocephalic. EYES: Pupils equal round and reactive to light, extraocular movements intact, sclera anicteric, conjunctiva are normal. ENT: Nares patent, oropharynx clear without exudates. Moist mucous membranes. NECK: Normal range of motion, supple without lymphadenopathy or JVD. LUNGS: Breath sounds clear to auscultation bilaterally and equal. No wheezes rales or rhonchi. HEART: Regular rate and rhythm without murmurs, rubs or gallops. ABDOMEN: Soft, nontender, normoactive bowel sounds. No guarding, no rebound. No masses appreciated. EXTREMITIES: Normal range of motion, no pitting or edema. No clubbing or cyanosis. NEUROLOGICAL: Cranial nerves II through XII grossly intact. Normal speech, normal gait. PSYCH: Normal mood, normal affect. SKIN: Warm, Dry, normal turgor, no rashes or lesions noted. Course - Re-evaluation Re-evalutation: 01/05/20 00:55 The patient has been having chest pains off and on over the last week which happen when sitting. She has no radiation of the pain, no nausea, no sweating, no trouble breathing. The patient has an unremarkable EKG and completely negative Trop. Her K cameback low at 2.0. The patient cant tell me why she has had low K in the past but she says she takes supplement at night usually (she hasnt taken it tonight). The patient has a PCP and Water Pumper and she would like to follow up as an outpatient for a stress test which I think is safe and reasonable given the current pandemic environment with COVID19. - Vital Signs Vital signs: Temp Pulse Resp BP Pulse Ox 97.8 F 20 160/64 H 99 01/05/20 00:24 01/05/20 00:24 01/05/20 00:24 01/05/20 00:24 - Laboratory Result Diagrams: 01/04/20 22:48 01/04/20 22:48 Laboratory results interpreted by me: 01/04/20 22:48 Sodium 128.0 L Potassium 3.0 L* Chloride 85 L Carbon Dioxide 33 H Est GFR ( Amer) 49 L Est GFR (MDRD) Non-Af 41 L - Diagnostic Test Radiology reviewed: Image reviewed, Reports reviewed - EKG Interpretation by Me EKG shows normal: Sinus rhythm, [place], Intervals, QRS Complexes, ST-T Waves Rate: Normal Rhythm: NSR Discharge - Discharge Clinical Impression: Hypokalemia Chest pain Qualifiers: Chest pain type: unspecified Qualified Code(s): R07.9 - Chest pain, unspecified Condition: Stable Disposition: HOME, SELF-CARE Instructions: Chest Pain of Unclear Cause ([facility]), Hypokalemia ([facility]) Additional Instructions: Follow up with your primary care doctor and with your Water Pumper. You should have an outpatient cardiac stress test and you should have your potassium level rechecked as it was low at 2.0 in the ER today. Return to an ER for persistent chest pain, chest pain with nausea/vomiting, radiation of chest pain to your arms or jaw, shortness of breath or if worse. Referrals: PRAKASH GARCES PA-C [Primary Care Provider] - Follow up as needed
[2020-01-05 00:41] VITALS: BP 160/64
--- NOTE | 2020-01-05 11:17 | EKG REPORT ---
SEVERITY:- ABNORMAL ECG - SINUS RHYTHM IVCD NONSPECIFIC ST-T CHANGES DIFFUSE LEADS : Confirmed by: Terence Prince MD 05-Jan-2020 11:16:30
== END 2020-01-05 00:43 | disposition home or self-care (01) ==
LOC: ER 22:32
DX: R07.9 Chest pain, unspecified (principal); E87.6 Hypokalemia; I10 Essential (primary) hypertension; E78.5 Hyperlipidemia, unspecified
CPT/HCPCS: 93005; 36415; 83735; 85025; 80053; 84484; 71046; 93010; J7030; A9270; J3490; 96360; 99285